=== PATIENT | female | born 1995 | race Caucasian/White ===

== ENCOUNTER 2016-08-18 20:39 | Emergency (ER) | payer OTHER ==
[2016-08-18] MEDS ORDERED: IBUPROFEN 400 MG TAB As Ordered ONE (22:16)
--- NOTE | 2016-08-18 22:22 | EDDOCDS ---
Physician Documentation [facility] Name: Chacha Garcia Age: 20 yrs Sex: Female : 1995 Arrival Date: 08/18/2016 Time: 20:39 Bed TR7 Private MD: Ivette Portillo Disposition: 08/18/16 22:13 Discharged to Home/Self Care. Impression: Contusion of left thigh - AND HIP, Contusion of right hand. - Condition is Stable. - Discharge Instructions: Contusion, Hand Contusion. - Prescriptions for Ibuprofen 400 mg Oral Tablet - take 1 tablet by ORAL route every 6 hours As needed take with food; 30 tablet. - Medication Reconciliation, Local Pharmacy Hours form. - Follow up: Ivette Portillo; When: 2 - 3 days; Reason: Recheck today's complaints, Continuance of care. Follow up: [facility]; When: As needed; Reason: Recheck today's complaints, Continuance of care. - Problem is new. - Symptoms have improved. - Notes: USE MOTRIN, TYLENOL, ICE AND ANDRZEJ WRAP TO THE AFFECTED AREAS, FOLLOW UP WITH YOUR DOCTOR, IF NEEDED [facility] ORTHOPEDIC INFORMATION HAS BEEN GIVEN WELL Historical: - Allergies: no known allergies; - Home Meds: 1. citalopram 20 mg Oral tab 1 tab once daily pt states has not taken in a few weeks 2. Depo-Provera Unknown IM Unknown every 3 mo - PMHx: Depression; Anxiety; - PSHx: none; - Social history: Smoking status: Patient uses tobacco products, current every day smoker. No barriers to communication noted, The patient speaks fluent Occitan, Speaks appropriately for age. - Family history: Not pertinent. - : The pt / caregiver states he / she is not on anticoagulants. Home medication list is obtained from the patient. - Exposure Risk Screening:: None identified. 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 2 in. (157.48 cm) (R); Pain 8/10; 20:41 Body Mass Index 21.40 (53.07 kg, 157.48 cm) elp Procedures: 22:21 Fracture care/splinting: Splint applied to right hand using andrzej wrap, applied by nurse. ck7 Examined by me, post splint application: neurovascular intact, 2+ distal pulses palpable, brisk capillary refill noted, Patient tolerated well. MDM: 20:59 Hip,(1 View) Ordered. EDMS 21:00 Hand, Complete Ordered. EDMS 22:12 Financial registration complete. gb 22:12 Ibuprofen 400 mg PO once ordered. ck7 22:12 Andrzej Wrap ordered. ck7 22:12 [facility] Payment Agreement was scanned into [employer] and attached to record. gb Administered Medications: 22:18 Drug: Ibuprofen 400 mg [ibuprofen 400 mg tablet (1 tabs)] Route: PO; dsf Signatures: Dispatcher [employer] EDMS Loida Hannon, Reg Reg Nataliia Mojica,RN RN dsf Azeem Hayes, RPA-C RPA-Cck7 The chart was reviewed and I authenticate all verbal orders and agree with the evaluation and treatment provided.Attachments: 22:12 [facility] Payment Agreement gb CAROLINED
--- NOTE | 2016-08-18 22:22 | EDDOCDS ---
Nurse's Notes [facility] Name: Chacha Garcia Age: 20 yrs Sex: Female : 1995 Arrival Date: 08/18/2016 Time: 20:39 Bed TR7 Private MD: Ivette Portillo Diagnosis: Contusion of left thigh-AND HIP;Contusion of right hand Presentation: 08/18 20:43 Presenting complaint: Patient states: fell in the bath tub last night. pt c/o left dsf groin and right hand pain. Adult Sepsis Screening: The patient does not have new or worsening altered mentation. Patient's respiratory rate is less than 22. Systolic blood pressure is greater than 100. Patient has a qSOFA score of 0- Negative Sepsis Screen. Suicide/Homicide risk assessment- the patient denies having any suicidal and/or homicidal ideations and does not present with any other emotional, behavioral or mental health complaints. Status: Patient is not a volunteer services director or dependent. Transition of care: patient was not received from another setting of care. 20:43 Acuity: IVETTE Level 4 dsf 20:43 Method Of Arrival: Walkin/Carried/Asstd dsf Triage Assessment: 20:45 General: Appears in no apparent distress, Behavior is appropriate for age, cooperative. dsf Pain: Location: left groin Pain currently is 8 out of 10 on a pain scale. Quality of pain is described as pulled muscle Pain began 1 day ago Aggravated by weight bearing, sitting. HIV screening NA for this visit Offered previously. GI: Reports nausea. 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 citalopram 20 mg Oral tab 1 tab once daily pt states has not taken in a few weeks 2. Depo-Provera Unknown IM Unknown every 3 mo - PMHx: Depression; Anxiety; - PSHx: none; - Social history: Smoking status: Patient uses tobacco products, current every day smoker. No barriers to communication noted, The patient speaks fluent Spanish, Speaks appropriately for age. - Family history: Not pertinent. - : The pt / caregiver states he / she is not on anticoagulants. Home medication list is obtained from the patient. - Exposure Risk Screening:: None identified. Screenin:19 Screening information is obtained from the patient. Fall risk: No risks identified. dsf Assistance ADL's: requires no assistance with activities of daily living. Abuse/DV Screen: The patient / caregiver reports he/she is: not in a situation that causes fear, pain or injury. Nutritional screening: No deficits noted. Advance Directives: Currently, there is no health care proxy. home support is adequate. Assessment: 22:19 Adult Sepsis Screening: The patient does not have new or worsening altered mentation. dsf Patient's respiratory rate is less than 22. Systolic blood pressure is greater than 100. Patient has a qSOFA score of 0- Negative Sepsis Screen. General: Appears in no apparent distress, Behavior is appropriate for age, cooperative. Pain: Location: left groin and right hand. Neurological: Level of Consciousness is awake, alert. Cardiovascular: No deficits noted. GI: Abdomen is non- distended Denies nausea, vomiting, pain. Derm: Skin is pink, warm & dry. Vital Signs: 20:41 BP 122 / 66; Pulse 76; Resp 18; Temp 97.6(O); Pulse Ox 99% on R/A; Weight 53.07 kg (R); elp Height 5 ft. 2 in. (157.48 cm) (R); Pain 8/10; 20:41 Body Mass Index 21.40 (53.07 kg, 157.48 cm) [facility] Vitals: 20:41 Log In Time: August 18, 2016 at 20:40. [facility] ED Course: 20:40 Patient visited by Emely Bansal PCA. elp 20:40 Ivette Portillo is Private Physician. elp 20:40 Patient moved to Waiting elp 20:42 Patient visited by Emely Bansal PCA. elp 20:42 Patient moved to Pre RCE elp 20:44 Triage Initiated dsf 21:28 Patient moved to Radiology tmb 21:39 Patient moved to Pre RCE tmb 21:53 Patient moved to Triage 1 ld5 22:06 [facility] Hayes [facility]-C [facility] ck7 22:06 Ekta Heredia MD is Attending Physician. ck7 22:06 Patient visited by Azeem Hayes RPA-C. ck7 22:12 Ivette Portillo is Referral Physician. ck7 22:12 [facility] Payment Agreement was scanned into [employer] and attached to record. gb 22:14 [facility] is Referral Physician. ck7 22:14 Patient name changed from Chacha\S\\S\Jose\S\ to Chacha\S\Maria\S\Jose. EDMS 22:18 The patient / caregiver is instructed regarding the plan of care and ED course. dsf 22:18 No IV's were initiated during this patient's visit. No procedures done that require dsf assistance. 22:18 Andrzej wrap to right hand. Patient has positive distal pulse, brisk capillary refill, and dsf positive sensation after application. 22:20 Patient moved to [address] Administered Medications: 22:18 Drug: Ibuprofen 400 mg [ibuprofen 400 mg tablet (1 tabs)] Route: PO; dsf Order Results: There are currently no results for this order. Outcome: 22:13 Discharge ordered by Provider. ck7 22:19 Discharge Assessment: Patient awake, alert and oriented x 3. No cognitive and/or dsf functional deficits noted. Patient verbalized understanding of disposition instructions. patient administered narcotics - no. The following High Risk Discharge criteria are identified: None. Discharged to home ambulatory. Condition: stable. Discharge instructions given to patient, Instructed on discharge instructions, follow up and referral plans. medication usage, Rest, Ice, Compression and Elevation. Demonstrated understanding of instructions, medications, Pt was receptive of discharge instructions/ teaching. No special radiology studies were completed. Property sent home with patient. 22:21 Patient left the ED. dsf Signatures: Dispatcher [employer] EDMS Loida Hannon, Reg Reg Saniya Klein,RN RN ld5 Nataliia Hansen RN RN dsf Tayler Dawkins RN RN cj Azeem Hayes, RPA-C RPA-Cck7 Patchen, Emely, RECORDS MANAGEMENT CLERK RECORDS MANAGEMENT CLERK elp Biolsi, Jameel tmb MTDD
--- NOTE | 2016-08-19 01:47 | REP ---
Clinical: Trauma with pain. Technique: AP, lateral, bilateral oblique views of the right hand . Findings: The osseous structures and joint spaces are intact and normal. There is no evidence for acute fracture or dislocation. Surrounding soft tissues are unremarkable. No subcutaneous emphysema or radiodense foreign body. Impression: No acute fracture or dislocation. Signed by Vinayak Sanchez MD 08/19/2016 01:39 A
--- NOTE | 2016-08-19 01:49 | REP ---
Clinical: Pain. Technique: Single neutral view of the left hip. Findings: Skeletal structures, joint spaces, and surrounding soft tissues are normal for age. No obvious abnormality noted. Impression: Normal left hip radiograph. Signed by Vinayak Sanchez MD 08/19/2016 01:41 A
--- NOTE | 2016-08-20 23:22 | EDDOCDS ---
Physician Documentation [facility] Name: Chacha Garcia Age: 20 yrs Sex: Female : 1995 Arrival Date: 08/18/2016 Time: 20:39 Bed TR7 Private MD: Ivette Portillo Disposition: 08/18/16 22:13 Discharged to Home/Self Care. Impression: Contusion of left thigh - AND HIP, Contusion of right hand. - Condition is Stable. - Discharge Instructions: Contusion, Hand Contusion. - Prescriptions for Ibuprofen 400 mg Oral Tablet - take 1 tablet by ORAL route every 6 hours As needed take with food; 30 tablet. - Medication Reconciliation, Local Pharmacy Hours form. - Follow up: Ivette Portillo; When: 2 - 3 days; Reason: Recheck today's complaints, Continuance of care. Follow up: [facility]; When: As needed; Reason: Recheck today's complaints, Continuance of care. - Problem is new. - Symptoms have improved. - Notes: USE MOTRIN, TYLENOL, ICE AND ANDRZEJ WRAP TO THE AFFECTED AREAS, FOLLOW UP WITH YOUR DOCTOR, IF NEEDED [facility] ORTHOPEDIC INFORMATION HAS BEEN GIVEN WELL Historical: - Allergies: no known allergies; - Home Meds: 1. citalopram 20 mg Oral tab 1 tab once daily pt states has not taken in a few weeks 2. Depo-Provera Unknown IM Unknown every 3 mo - PMHx: Depression; Anxiety; - PSHx: none; - Social history: Smoking status: Patient uses tobacco products, current every day smoker. No barriers to communication noted, The patient speaks fluent Slovak, Speaks appropriately for age. - Family history: Not pertinent. - : The pt / caregiver states he / she is not on anticoagulants. Home medication list is obtained from the patient. - Exposure Risk Screening:: None identified. 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 2 in. (157.48 cm) (R); Pain 8/10; 20:41 Body Mass Index 21.40 (53.07 kg, 157.48 cm) elp Procedures: 22:21 Fracture care/splinting: Splint applied to right hand using andrzej wrap, applied by nurse. ck7 Examined by me, post splint application: neurovascular intact, 2+ distal pulses palpable, brisk capillary refill noted, Patient tolerated well. MDM: 20:59 Hip,(1 View) Ordered. EDMS 21:00 Hand, Complete Ordered. EDMS 22:12 Financial registration complete. gb 22:12 Ibuprofen 400 mg PO once ordered. ck7 22:12 Andrzej Wrap ordered. ck7 22:12 [facility] Payment Agreement was scanned into [employer] and attached to record. gb 08/19 11:44 T-Sheet-- Draft Copy was scanned into [employer] and attached to record. gb Administered Medications: 08/18 22:18 Drug: Ibuprofen 400 mg [ibuprofen 400 mg tablet (1 tabs)] Route: PO; dsf Signatures: Dispatcher [employer] EDLoida Dumont, Reg Reg gb Nataliia Hansne,RN RN dsf Azeem Hayes, RPA-C RPA-Cck7 The chart was reviewed and I authenticate all verbal orders and agree with the evaluation and treatment provided.Attachments: 22:12 [facility] Payment Agreement gb 08/19 11:44 T-Sheet-- Draft Copy gb Chart Complete MTDD
--- NOTE | 2016-08-20 23:22 | EDDOCDS ---
Nurse's Notes [facility] Name: Chacha Garcia Age: 20 yrs Sex: Female : 1995 Arrival Date: 08/18/2016 Time: 20:39 Bed TR7 Private MD: Ivette Portillo Diagnosis: Contusion of left thigh-AND HIP;Contusion of right hand Presentation: 08/18 20:43 Presenting complaint: Patient states: fell in the bath tub last night. pt c/o left dsf groin and right hand pain. Adult Sepsis Screening: The patient does not have new or worsening altered mentation. Patient's respiratory rate is less than 22. Systolic blood pressure is greater than 100. Patient has a qSOFA score of 0- Negative Sepsis Screen. Suicide/Homicide risk assessment- the patient denies having any suicidal and/or homicidal ideations and does not present with any other emotional, behavioral or mental health complaints. Status: Patient is not a hospital tray service worker or dependent. Transition of care: patient was not received from another setting of care. 20:43 Acuity: IVETTE Level 4 dsf 20:43 Method Of Arrival: Walkin/Carried/Asstd dsf Triage Assessment: 20:45 General: Appears in no apparent distress, Behavior is appropriate for age, cooperative. dsf Pain: Location: left groin Pain currently is 8 out of 10 on a pain scale. Quality of pain is described as pulled muscle Pain began 1 day ago Aggravated by weight bearing, sitting. HIV screening NA for this visit Offered previously. GI: Reports nausea. 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 citalopram 20 mg Oral tab 1 tab once daily pt states has not taken in a few weeks 2. Depo-Provera Unknown IM Unknown every 3 mo - PMHx: Depression; Anxiety; - PSHx: none; - Social history: Smoking status: Patient uses tobacco products, current every day smoker. No barriers to communication noted, The patient speaks fluent Slovenian, Speaks appropriately for age. - Family history: Not pertinent. - : The pt / caregiver states he / she is not on anticoagulants. Home medication list is obtained from the patient. - Exposure Risk Screening:: None identified. Screenin:19 Screening information is obtained from the patient. Fall risk: No risks identified. dsf Assistance ADL's: requires no assistance with activities of daily living. Abuse/DV Screen: The patient / caregiver reports he/she is: not in a situation that causes fear, pain or injury. Nutritional screening: No deficits noted. Advance Directives: Currently, there is no health care proxy. home support is adequate. Assessment: 22:19 Adult Sepsis Screening: The patient does not have new or worsening altered mentation. dsf Patient's respiratory rate is less than 22. Systolic blood pressure is greater than 100. Patient has a qSOFA score of 0- Negative Sepsis Screen. General: Appears in no apparent distress, Behavior is appropriate for age, cooperative. Pain: Location: left groin and right hand. Neurological: Level of Consciousness is awake, alert. Cardiovascular: No deficits noted. GI: Abdomen is non- distended Denies nausea, vomiting, pain. Derm: Skin is pink, warm & dry. Vital Signs: 20:41 BP 122 / 66; Pulse 76; Resp 18; Temp 97.6(O); Pulse Ox 99% on R/A; Weight 53.07 kg (R); elp Height 5 ft. 2 in. (157.48 cm) (R); Pain 8/10; 20:41 Body Mass Index 21.40 (53.07 kg, 157.48 cm) [facility] Vitals: 20:41 Log In Time: August 18, 2016 at 20:40. [facility] ED Course: 20:40 Patient visited by Emely Bansal PCA. elp 20:40 Ivette Portillo is Private Physician. elp 20:40 Patient moved to Waiting elp 20:42 Patient visited by Emely Bansal PCA. elp 20:42 Patient moved to Pre RCE elp 20:44 Triage Initiated dsf 21:28 Patient moved to Radiology tmb 21:39 Patient moved to Pre RCE tmb 21:53 Patient moved to Triage 1 ld5 22:06 Azeem Hayes RPA-C [facility] ck7 22:06 Ekta Heredia MD is Attending Physician. ck7 22:06 Patient visited by Azeem Hayes RPA-C. ck7 22:12 Ivette Portlilo is Referral Physician. ck7 22:12 [facility] Payment Agreement was scanned into [email or web address] and attached to record. gb 22:14 [facility] is Referral Physician. ck7 22:14 Patient name changed from Chacha\S\\S\Jose\S\ to Chacha\S\Maria\S\Jose. EDMS 22:18 The patient / caregiver is instructed regarding the plan of care and ED course. dsf 22:18 No IV's were initiated during this patient's visit. No procedures done that require dsf assistance. 22:18 Andrzej wrap to right hand. Patient has positive distal pulse, brisk capillary refill, and dsf positive sensation after application. 22:20 Patient moved to [address] 08/19 02:04 Hand, Complete Returned. EDMS 02:04 Hip,(1 View) Returned. EDMS 11:44 T-Sheet-- Draft Copy was scanned into [email or web address] and attached to record. gb Administered Medications: 08/18 22:18 Drug: Ibuprofen 400 mg [ibuprofen 400 mg tablet (1 tabs)] Route: PO; dsf Order Results: Radiology Order: Hip,(1 View) Test: Hip,(1 View) REASON FOR EXAMINATION: pain; Clinical: Pain.; ; Technique: Single neutral view of the left hip.; ; Findings:; Skeletal structures, joint spaces, and surrounding soft tissues are normal for; age. No obvious abnormality noted.; ; Impression:; Normal left hip radiograph.; ; ; Signed by; Vinayak Sanchez MD 08/19/2016 01:41 A; Radiology Order: Hand, Complete Test: Hand, Complete REASON FOR EXAMINATION: pain in hand after fall; Clinical: Trauma with pain.; ; Technique: AP, lateral, bilateral oblique views of the right hand .; ; Findings: The osseous structures and joint spaces are intact and normal. There; is no evidence for acute fracture or dislocation. Surrounding soft tissues are; unremarkable. No subcutaneous emphysema or radiodense foreign body.; ; Impression:; No acute fracture or dislocation.; ; ; Signed by; Vinayak Sanchez MD 08/19/2016 01:39 A; Outcome: 22:13 Discharge ordered by Provider. ck7 22:19 Discharge Assessment: Patient awake, alert and oriented x 3. No cognitive and/or dsf functional deficits noted. Patient verbalized understanding of disposition instructions. patient administered narcotics - no. The following High Risk Discharge criteria are identified: None. Discharged to home ambulatory. Condition: stable. Discharge instructions given to patient, Instructed on discharge instructions, follow up and referral plans. medication usage, Rest, Ice, Compression and Elevation. Demonstrated understanding of instructions, medications, Pt was receptive of discharge instructions/ teaching. No special radiology studies were completed. Property sent home with patient. 22:21 Patient left the ED. dsf Signatures: Dispatcher [employer] EDNM Loida Hannon, Reg Reg gb Saniya Klein,RN RN ld5 Nataliia HansenRN RN dsTayler Kirby,RN RN [facility] Azeem Hayes, SONNY-C RPA-Cck7 Emely Bansal, JOSE BAD WORK GATHERER elJameel Awad Chart Complete MTDJony
--- NOTE | 2016-08-20 23:22 | EDDOCDS ---
Physician Documentation [facility] Name: Chacha Garcia Age: 20 yrs Sex: Female : 1995 Arrival Date: 08/18/2016 Time: 20:39 Bed TR7 Private MD: Ivette Portillo Disposition: 08/18/16 22:13 Discharged to Home/Self Care. Impression: Contusion of left thigh - AND HIP, Contusion of right hand. - Condition is Stable. - Discharge Instructions: Contusion, Hand Contusion. - Prescriptions for Ibuprofen 400 mg Oral Tablet - take 1 tablet by ORAL route every 6 hours As needed take with food; 30 tablet. - Medication Reconciliation, Local Pharmacy Hours form. - Follow up: Ivette Portillo; When: 2 - 3 days; Reason: Recheck today's complaints, Continuance of care. Follow up: [facility]; When: As needed; Reason: Recheck today's complaints, Continuance of care. - Problem is new. - Symptoms have improved. - Notes: USE MOTRIN, TYLENOL, ICE AND ANDRZEJ WRAP TO THE AFFECTED AREAS, FOLLOW UP WITH YOUR DOCTOR, IF NEEDED [facility] ORTHOPEDIC INFORMATION HAS BEEN GIVEN WELL Historical: - Allergies: no known allergies; - Home Meds: 1. citalopram 20 mg Oral tab 1 tab once daily pt states has not taken in a few weeks 2. Depo-Provera Unknown IM Unknown every 3 mo - PMHx: Depression; Anxiety; - PSHx: none; - Social history: Smoking status: Patient uses tobacco products, current every day smoker. No barriers to communication noted, The patient speaks fluent Upper Sorbian, Speaks appropriately for age. - Family history: Not pertinent. - : The pt / caregiver states he / she is not on anticoagulants. Home medication list is obtained from the patient. - Exposure Risk Screening:: None identified. 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 2 in. (157.48 cm) (R); Pain 8/10; 20:41 Body Mass Index 21.40 (53.07 kg, 157.48 cm) elp Procedures: 22:21 Fracture care/splinting: Splint applied to right hand using andrzej wrap, applied by nurse. ck7 Examined by me, post splint application: neurovascular intact, 2+ distal pulses palpable, brisk capillary refill noted, Patient tolerated well. MDM: 20:59 Hip,(1 View) Ordered. EDMS 21:00 Hand, Complete Ordered. EDMS 22:12 Financial registration complete. gb 22:12 Ibuprofen 400 mg PO once ordered. ck7 22:12 Andrzej Wrap ordered. ck7 22:12 [facility] Payment Agreement was scanned into [employer] and attached to record. gb 08/19 11:44 T-Sheet-- Draft Copy was scanned into [employer] and attached to record. gb Administered Medications: 08/18 22:18 Drug: Ibuprofen 400 mg [ibuprofen 400 mg tablet (1 tabs)] Route: PO; dsf Signatures: Dispatcher [employer] EDLoida Dumont, Reg Reg gb Nataliia Hansen,RN RN dsf Azeem Hayes, RPA-C RPA-Cck7 The chart was reviewed and I authenticate all verbal orders and agree with the evaluation and treatment provided.Attachments: 22:12 [facility] Payment Agreement gb 08/19 11:44 T-Sheet-- Draft Copy gb Chart Complete MTDD
== END 2016-08-18 22:21 | disposition home or self-care (01) ==
LOC: M ED 20:39
DX: S70.12XA Contusion of left thigh, initial encounter (principal); S70.02XA Contusion of left hip, initial encounter; S60.221A Contusion of right hand, initial encounter; W16.212A Fall in (into) filled bathtub causing other injury, initial encounter; Y92.012 Bathroom of single-family (private) house as the place of occurrence of the external cause; Y93.E1 Activity, personal bathing and showering; Y99.8 Other external cause status; F41.9 Anxiety disorder, unspecified; F32.9 Major depressive disorder, single episode, unspecified; F17.210 Nicotine dependence, cigarettes, uncomplicated; Z79.3 Long term (current) use of hormonal contraceptives; Z79.899 Other long term (current) drug therapy

== ENCOUNTER 2016-09-22 16:47 | Emergency (ER) | payer OTHER ==
[~2016-09-22] VITALS: Ht 157.5 cm; Wt 53.1 kg
[2016-09-22] MEDS ORDERED: NAPR500T PO (18:39)
[2016-09-22 18:40] VITALS: BP 111/66
== END 2016-09-22 18:46 | disposition home or self-care (01) ==
LOC: M ED 18:44
DX: M94.0 Chondrocostal junction syndrome [Tietze] (principal); F17.210 Nicotine dependence, cigarettes, uncomplicated